=== PATIENT | female | born 1970 | race Caucasian/White ===

== ENCOUNTER 2019-07-21 17:04 | Outpatient (RCR) | payer OTHER, SELFPAY ==
[2019-07-21 17:25] LABS: Absolute Lymphocyte Count 2.06 X10^3/uL (0.83-4.51); Absolute Neutrophil Count 13.1 X10^3/uL (2.0-7.7); Basophil# 0.03 X10^3/uL; Basophil% 0.2 % (0-1); Eosinophils% 0.6 % (0-5); Hematocrit 40.8 % (37-47); Lymphocyte # 2.06 X10^3/ul (4.0); Lymphocyte % 12.7 % (19-41); Mean Corp Hgb Conc 31.9 g/dL (32-36); Mean Corpuscular Hgb 29.3 pg (27.0-32.0); Mean Corpuscular Volume 92.1 fL (81-99); Mean Platelet Vol. 8.5 fl (6.2-12.0); Monocyte# 0.83 X10^3/uL; Monocyte% 5.1 % (0-10); NRBC Flagged by Analyzer 0 % (0-5); Neutrophil # 13.06 X10^3/uL (2.7-7.7); Neutrophil % 80.7 % (47-70); Platelet Count 376 K/mm3 (150-450); RBC Distribution Width CV 13.2 % (11.6-14.6); RBC Distribution Width SD 43.7 fl (35.1-43.9); Red Blood Count 4.43 M/mm3 (4.2-5.4); White Blood Count 16.2 K/mm3 (4.4-11.0)
[2019-07-21 17:57] LABS: Creatinine, Serum 0.72 mg/dL (0.55-1.02); EST Glomerular Filtration Rate 91 mL/min (>60); Est Glom Filt Rate - Afr Amer 110 mL/min (>60); Potassium 3.8 mmol/L (3.5-5.1)
== END 2019-07-21 18:00 | disposition home or self-care (01) ==
LOC: HHLAB 17:04
DX: J47.1 Bronchiectasis with (acute) exacerbation (principal)
CPT/HCPCS: 82565; 84132; 85025